=== PATIENT | female | born 2005 | race Caucasian/White ===

== ENCOUNTER 2023-09-15 19:47 | Emergency (ER) | payer OTHER ==
[~2023-09-15] VITALS: Ht 175.3 cm; Wt 89.7 kg
[2023-09-15] MEDS: KETOROLAC TROMETHAMINE 10 MG TAB PO ONE (21:40)
[2023-09-15] MEDS: methocarbamoL 500 MG TAB PO ONE (21:40)
[2023-09-15] MEDS ORDERED: METH-1164 PO (22:32)
[2023-09-15 22:48] VITALS: BP 129/68; TEMP 97.3; O2SAT 98
== END 2023-09-15 22:48 | disposition home or self-care (01) ==
LOC: M ED 19:47 → EDSEX 19:47 → M ED 22:48
DX: S46.812A Strain of other muscles, fascia and tendons at shoulder and upper arm level, left arm, initial encounter (principal); X50.0XXA Overexertion from strenuous movement or load, initial encounter; Y92.9 Unspecified place or not applicable; Y93.89 Activity, other specified; Y99.0 Civilian activity done for income or pay; Z79.899 Other long term (current) drug therapy

== ENCOUNTER → 2024-03-28 | Outpatient (REF) ==
[~2024-03-28] MED LIST: METH-1164 PO
== END ==
LOC: M EMP 09:24
PROVIDERS: ATTEND Family Medicine
DX: Z01.89 Encounter for other specified special examinations (principal)

== ENCOUNTER 2024-04-03 00:53 | Emergency (ER) | payer OTHER ==
[~2024-04-03] VITALS: Ht 177.8 cm; Wt 90.9 kg
[2024-04-03] MEDS ORDERED: NAPR-885 (01:30)
[2024-04-03 01:33] VITALS: BP 132/77; TEMP 96.7; O2SAT 96
== END 2024-04-03 02:47 | disposition left against medical advice (07) ==
LOC: M ED 00:53
DX: Z53.21 Procedure and treatment not carried out due to patient leaving prior to being seen by health care provider (principal)

== ENCOUNTER 2024-08-09 05:44 | Emergency (ER) | payer OTHER ==
[~2024-08-09] VITALS: Ht 177.8 cm; Wt 94.5 kg
[~2024-08-09 05:44] MED LIST changes: +NAPR-885
[2024-08-09 07:26] VITALS: TEMP 99.1
[2024-08-09 07:59] VITALS: O2SAT 94
[2024-08-09 08:00] VITALS: BP 135/76
[2024-08-09] MEDS ORDERED: AZIT-12 PO (08:05)
== END 2024-08-09 08:14 | disposition home or self-care (01) ==
LOC: M ED 05:44
DX: J15.7 Pneumonia due to Mycoplasma pneumoniae (principal); Z79.2 Long term (current) use of antibiotics; Z79.1 Long term (current) use of non-steroidal anti-inflammatories (NSAID)

== ENCOUNTER 2025-01-27 15:10 | Emergency (ER) | payer OTHER ==
[~2025-01-27] VITALS: Ht 154.9 cm; Wt 49.3 kg
[~2025-01-27 15:10] MED LIST changes: +AZIT-12 PO
[2025-01-27] MEDS ORDERED: MELO7.5T35 PO (15:26)
[2025-01-27] MEDS ORDERED: TIZA2TA PO (15:26)
[2025-01-27 17:23] LABS: HCG, SERUM QUALITATIVE NEGATIVE (NEGATIVE)
[2025-01-27 18:13] VITALS: BP 133/78; TEMP 98.1; O2SAT 100
== END 2025-01-27 18:15 | disposition home or self-care (01) ==
LOC: M ED 15:10
DX: S00.83XA Contusion of other part of head, initial encounter (principal); S02.5XXA Fracture of tooth (traumatic), initial encounter for closed fracture; W22.8XXA Striking against or struck by other objects, initial encounter; J34.1 Cyst and mucocele of nose and nasal sinus; Y92.239 Unspecified place in hospital as the place of occurrence of the external cause; Y93.89 Activity, other specified; Y99.0 Civilian activity done for income or pay; Z79.899 Other long term (current) drug therapy